=== PATIENT | female | born 1980 | race Caucasian/White ===

== ENCOUNTER → 2016-08-11 | Outpatient (CLI) | payer BC ==
--- NOTE | 2016-08-11 09:47 | CR ---
EXAMINATION: Right knee HISTORY: Pain COMPARISON: 09/25/2015 TECHNIQUE: 3 views FINDINGS/IMPRESSION: There is no acute osseous abnormality, dislocation, joint effusion, or fracture identified. Bone mineralization and joint spaces appear preserved. Early osteophyte formation is no mauri within the patellofemoral compartment.
== END ==
LOC: MW.CHORTHO 07:51
PROVIDERS: ATTEND Physician Assistant
DX: M25.561 Pain in right knee (principal); M25.761 Osteophyte, right knee
CPT/HCPCS: 73562-26-RT; 73562-RT

== ENCOUNTER → 2016-08-19 | Outpatient (CLI) | payer BC ==
--- NOTE | 2016-08-20 18:15 | MR ---
EXAM DATE: 08/19/16 PATIENT'S AGE: 35 Patient: AMISH CUEVAS Facility: [place], [place] Site . Site : 1980 Study: MRI Knee Left [id number]/15/2017 7:11:56 PM Ordering Physician: Anu Bunch Final Report: Indication: Knee pain. Comparison: None. Technique: Axial PD fat-sat, sagittal PD, T1 and PD fat sat and coronal PD and PD fat-sat sequences. Findings: Medial compartment: Meniscus: Intact. Articular cartilage: Increase signal and heterogeneous grade 2 to some areas of grade 3 irregular thinning in the central weightbearing medial condyle. Suggestion of the short delaminating nondisplaced flap (image 18 series 901). No secondary osteoarthritis finding. Medial collateral ligament: Intact. Cruciate ligaments: ACL: Intact. PCL: Intact. Lateral compartment: Meniscus: Intact. Articular cartilage: Uniform. Lateral collateral complex: Intact. Patellofemoral compartment: Mildly irregular grade 2 standing with some grade 2 to grade 3 fissuring mid median ridge of the patella. Increased signal and some subchondral edema in the top of the medial trochlea. Extensor mechanism: Quadriceps tendon and patellar tendon are intact. Borderline patella Winthrop. There is subtle medial subluxation suggested. Small focal spur along the medial inferior patellar margin (image 24 series 301). Bones and soft tissues: Upper normal physiologic fluid. Small multiloculated Still`s cyst. No bone lesion or fracture. Impression: 1. Moderately prominent chondromalacia medial condyle. 2. Mild chondromalacia medial patella. Subchondral or friction related edema in the top of the medial trochlea. Query some chronic medial tracking of the patella versus focal posttraumatic arthrosis. Dictated by Ramesh Evans MD @ Aug 20 2016 2:23PM (Electronic Signature) Report Signed by Proxy and Original Signed Document filed in the Medical Record. [facility]
--- NOTE | 2016-08-20 18:16 | MR ---
EXAM DATE: 08/19/16 PATIENT'S AGE: 35 Patient: AMISH CUEVAS Facility: [place], [place] Site . Site : 1980 Study: MRI Knee Right [id number]/15/2017 7:13:02 PM Ordering Physician: Anu Bunch Final Report: Indication: Pain after skiing injury. Comparison: None. Technique: Axial PD fat-sat, sagittal PD, T1 and PD fat sat and coronal PD and PD fat-sat sequences. Findings: Medial compartment: Meniscus: Intact. Articular cartilage: Uniform. Medial collateral ligament: Intact. Cruciate ligaments: ACL: Intact. PCL: Intact. Lateral compartment: Meniscus: Intact. Articular cartilage: Uniform. Lateral collateral complex: Intact. Patellofemoral compartment: Subtle grade 2 thinning and increased signal in the outer margin of the medial facet. Remainder the compartment is uniform. Extensor mechanism: Quadriceps tendon and patellar tendon are intact. Anatomic patellar alignment with borderline medial tilt. Shallow area of subcortical edema at the inferior medial pole of the patella with adjacent subtle edema in Hoffa`s fat. Bones and soft tissues: Physiologic fluid in the joint. Curvilinear multicystic infiltration along the insertion of the semimembranosus (series image 8 series 601). No bone lesion or fracture. Impression: 1. Peritendinous ganglion or bursitis deep to the inserting semimembranosus tendon. No high-grade tear appreciated. 2. No internal derangement of menisci or ligaments. Dictated by Ramesh Evans MD @ Aug 20 2016 2:28PM (Electronic Signature) Report Signed by Proxy and Original Signed Document filed in the Medical Record. [facility]
== END | disposition home or self-care (01) ==
LOC: MW.MRI 15:39
PROVIDERS: ATTEND Physician Assistant
DX: M25.562 Pain in left knee (principal); M94.262 Chondromalacia, left knee; M25.561 Pain in right knee
CPT/HCPCS: 73721-26-LT; 73721-26-RT; 73721-LT; 73721-RT

== ENCOUNTER → 2016-10-22 | Outpatient (CLI) | payer BC | LOC: MW.LAB 13:27 | PROVIDERS: ATTEND Nurse Practitioner Family | DX: I87.2 Venous insufficiency (chronic) (peripheral) (principal); Z83.2 Family history of diseases of the blood and blood-forming organs and certain disorders involving the immune mechanism | CPT/HCPCS: 36415; 81240; 81241; 81291; 83090; 85302; 85305; 85613; 85730 ==

== ENCOUNTER 2018-08-17 06:46 | Day surgery (SDC) | payer BC ==
[~2018-08-17 06:46] MED LIST: Acetaminophen/HYDROcodone 325-5 MG Tab PO PRN; Lactated Ringers 1,000 ML IV SCH; ceFAZolin 1 GM in Premix Bag 1 BAG IV SCH
[2018-08-17] MEDS ORDERED: Midazolam 1 MG/ML 2 ML SDV ONE (07:14)
[2018-08-17] MEDS ORDERED: Propofol 200 MG/20 ML SDV ONE (07:14)
[2018-08-17] MEDS ORDERED: fentaNYL 250 MCG/5 ML SDV ONE (07:14)
[2018-08-17] MEDS: Lactated Ringers 1,000 ML IV SCH (07:15)
[2018-08-17] MEDS ORDERED: Dexamethasone 4 MG/ML 5 ML MDV ONE (07:15)
[2018-08-17] MEDS ORDERED: Ondansetron 4 MG/2 ML SDV ONE (07:15)
[2018-08-17] MEDS ORDERED: fentaNYL 100 MCG/2 ML SDV IVPUSH PRN (07:51)
[2018-08-17] MEDS ORDERED: Lidocaine 1% with EPINEPHrine 1:100,000 10 ML MDV ONE (07:52)
[2018-08-17] MEDS ORDERED: Ketorolac 30 MG/ML SDV ONE (07:52)
--- NOTE | 2018-08-17 07:59 | PCM.PREANE ---
Preanesthetic Assessment - Anesthesia/Transfusion/Family Hx Anesthesia History: Prior Anesthesia Reaction Other Type of Anesthesia Reaction Comment: pt states she had problems with n/v after wisdom teeth extraction Transfusion History: No Prior Transfusion(s) - Review of Systems General: No Symptoms Pulmonary: No Symptoms Cardiovascular: No Symptoms Gastrointestinal: No Symptoms Neurological: No Symptoms Other: Reports: None - Physical Assessment NPO Status Date: 08/16/18 NPO Status Time: 20:00 O2 Sat by Pulse Oximetry: 99 Respiratory Rate: 18 Vital Signs: Last Vital Signs Temp 97.9 F 08/17/18 07:05 Pulse 60 08/17/18 07:05 Resp 18 08/17/18 07:05 BP 97/60 08/17/18 07:05 Pulse Ox 99 08/17/18 07:05 Height: 5 ft 9 in Weight: 62.596 kg ASA Class: 1 Mental Status: Alert & Oriented x3 Dentition: Reports: Normal Dentition ROM/Head Extension: Full Lungs: Clear to Auscultation, Normal Respiratory Effort Cardiovascular: Regular Rate, Regular Rhythm - Lab Values: Laboratory Last Values Urine HCG, Qual NEGATIVE (NEGATIVE) 08/17/18 07:02 - Allergies Allergies/Adverse Reactions: Allergies Allergy/AdvReac Type Severity Reaction Status Date / Time No Known Allergies Allergy Verified 08/10/18 14:54 - Blood Blood Available: No - Anesthesia Plan Pre-Op Medication Ordered: None - Acknowledgements Anesthesia Type Planned: General Anesthesia Pt an Appropriate Candidate for the Planned Anesthesia: Yes Alternatives and Risks of Anesthesia Discussed w Pt/Guardian: Yes Pt/Guardian Understands and Agrees with Anesthesia Plan: Yes Additional Comments: PMH: none PLAN: ga-lma PreAnesthesia Questionnaire HEENT History: Reports: None Cardiovascular History: Reports: None Respiratory History: Reports: None Gastrointestinal History: Reports: Other (See Below) Other Gastrointestinal History: has Lincoln Disease- causes chronically high Bilirubin Genitourinary History: Reports: None 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: Musculoskeletal History: Reports: None Neurological History: Reports: None Psychiatric History: Reports: Other (See Below) Other Psychiatric History: hx of motion sickness Endocrine/Metabolic History: Reports: None Hematologic History: Reports: None Immunologic History: Reports: None Oncologic (Cancer) History: Reports: None Dermatologic History: Reports: None - Past Surgical History Head Surgeries/Procedures: Reports: None HEENT Surgical History: Reports: None Cardiovascular Surgical History: Reports: None Respiratory Surgical History: Reports: None GI Surgical History: Reports: None Female Surgical History: Reports: Breast Implant Endocrine Surgical History: Reports: None Neurological Surgical History: Reports: None Musculoskeletal Surgical History: Reports: None Oncologic Surgical History: Reports: None - SUBSTANCE USE Smoking Status *Q: Never Smoker Recreational Drug Use History: No - HOME MEDS Home Medications: Home Meds . [No Known Home Meds] 08/10/18 [History] - CURRENT (IN HOUSE) MEDS Current Meds: Current Medications Hydrocodone Bitart/Acetaminophen (Daykin 325-5 Mg) 1 - 2 tab PO Q4H PRN PRN Reason: Pain Fentanyl (Sublimaze) 50 mcg IVPUSH Q5M PRN PRN Reason: Pain (severe 7-10) Stop: 08/17/18 11:00 Cefazolin Sodium/Dextrose 1 gm (/ Premix) 50 mls @ 100 mls/hr IV ONCALL RYAN Lactated Ringer's (Ringers, Lactated) 1,000 mls @ 100 mls/hr IV ASDIRECTED RYAN Last Admin: 08/17/18 07:15 Dose: 100 mls/hr Discontinued Medications Hydrocodone Bitart/Acetaminophen (Daykin 325-5 Mg) 1 - 2 tab PO Q4H PRN PRN Reason: Pain Dexamethasone (Dexamethasone) Confirm Administered Dose 20 mg .ROUTE .STK-MED ONE Stop: 08/17/18 07:16 Fentanyl (Sublimaze) Confirm Administered Dose 250 mcg .ROUTE .STK-MED ONE Stop: 08/17/18 07:15 Cefazolin Sodium/Dextrose 1 gm (/ Premix) 50 mls @ 100 mls/hr IV ONCALL RYAN Lactated Ringer's (Ringers, Lactated) 1,000 mls @ 100 mls/hr IV ASDIRECTED RYAN Lidocaine HCl (Xylocaine-Mpf 1%) Confirm Administered Dose 5 mls @ as directed .ROUTE .STK-MED ONE Stop: 08/17/18 07:16 Cefazolin Sodium/Dextrose (Ancef) Confirm Administered Dose 50 mls @ as directed .ROUTE .STK-MED ONE Stop: 08/17/18 07:24 Lidocaine HCl (Xylocaine-Mpf 1%) Confirm Administered Dose 10 mls @ as directed .ROUTE .STK-MED ONE Stop: 08/17/18 07:54 Acetaminophen (Ofirmev) Confirm Administered Dose 100 mls @ as directed IV .STK- MED ONE Stop: 08/17/18 07:54 Ketorolac Tromethamine (Toradol) Confirm Administered Dose 30 mg .ROUTE .STK- MED ONE Stop: 08/17/18 07:53 Lidocaine/Epinephrine (Xylocaine 1% With Epinephrine 1:100,000) Confirm Administered Dose 10 ml .ROUTE .STK-MED ONE Stop: 08/17/18 07:53 Midazolam HCl (Versed 1 Mg/Ml) Confirm Administered Dose 2 mg .ROUTE .STK-MED ONE Stop: 08/17/18 07:15 Ondansetron HCl (Zofran) Confirm Administered Dose 4 mg .ROUTE .STK-MED ONE Stop: 08/17/18 07:16 Propofol (Diprivan 20 Ml) Confirm Administered Dose 200 mg .ROUTE .STK-MED ONE Stop: 08/17/18 07:15
[2018-08-17] MEDS ORDERED: ceFAZolin 1 GM in Premix Bag 1 BAG IV SCH (08:00)
[2018-08-17] MEDS ORDERED: ePHEDrine 50 MG/ML SDV ONE (08:41)
--- NOTE | 2018-08-17 09:12 | PCM.OPNOTE ---
- General Post-Op/Procedure Note Date of Surgery/Procedure: 08/17/18 Operative Procedure(s): L knee arthroscopy with chondroplasty of medial femoral condyle and PFJ Post-Op Diagnosis: DJD left knee Anesthesia Technique: General LMA Primary Surgeon: Vida Fregoso Operations Manager Station: Alivia Brennan in mLs: 10 Condition: Good Free Text/Narrative:: tt=19 min #[id number]
--- NOTE | 2018-08-17 09:33 | PCM.POSTAN ---
POST ANESTHESIA ASSESSMENT - MENTAL STATUS Mental Status: Alert, Oriented - RESPIRATORY Respiratory Status: Respiratory Rate WNL, Airway Patent, O2 Saturation Stable - CARDIOVASCULAR CV Status: Pulse Rate WNL, Blood Pressure Stable - GASTROINTESTINAL GI Status: No Symptoms - POST OP HYDRATION Hydration Status: Adequate & Stable
--- NOTE | 2018-08-17 10:04 | OR ---
SURGEON: Vida Fregoso MD DATE OF PROCEDURE: 08/17/2018 PREOPERATIVE DIAGNOSIS: Left knee degenerative joint disease. POSTOPERATIVE DIAGNOSIS: Left knee degenerative joint disease. PROCEDURE: Left knee arthroscopy with chondroplasty of the medial femoral condyle and patellofemoral joint. GEOLOGIST: Alivia Brennan PA-C ANESTHESIA: General. ESTIMATED BLOOD LOSS: 5 mL. TOURNIQUET TIME: 19 minutes. COMPLICATIONS: None. DEEP VENOUS THROMBOSIS PROPHYLAXIS: Not indicated. IMPLANTS USED: None. BRIEF HISTORY: Liza is a 37-year-old female who has had complaint of progressive left knee pain. She has tried injections as well as therapy, which has not given her lasting relief. Due to her lack of response to conservative treatment, I did recommend surgical treatment. Risks and goals of procedure were discussed with the patient and were documented preoperatively. She agreed to proceed. DESCRIPTION OF PROCEDURE: The patient was properly identified and brought to the operating room. She was transferred from the OR cart and placed on the operating table in supine position. General anesthesia was administered. After adequate anesthesia was obtained, a well-padded tourniquet was applied to the left lower extremity. The left lower extremity was then prepped in standard fashion using ChloraPrep solution. It was then sterilely draped. A time-out was performed to ensure correct site and procedure. Preoperative antibiotics were given. The surgical site had been marked preoperatively. An Esmarch was used to exsanguinate the left lower extremity, and the tourniquet was inflated to 250 mmHg. A lateral portal arthrotomy was established. Blunt trocar and cannula were introduced into the suprapatellar pouch. Camera, inflow, and outflow were assembled. There was no sign of synovitis. The patellofemoral joint was then visualized. Grade 3 chondromalacia was noted along the patella along with grade 4 chondromalacia along the trochlea. There was some evidence of fat pad impingement. The patella appeared to track centrally. I then extended down the lateral and medial gutter. No loose bodies were identified. I then entered the medial compartment. A medial portal arthrotomy was established. A blunt probe was inserted. The meniscus was extensively probed and found to be intact. She did have a large area of chondromalacia over the weightbearing surface of the medial femoral condyle. This was probed, and loose cartilage was noted. A shaver was used to perform a chondroplasty. The area of chondromalacia measured approximately 10 mm x 10 mm. At the completion of the chondroplasty, grade 3 chondromalacia was noted. Grade 2 chondromalacia was noted diffusely along the medial tibial plateau. I then entered the notch. Both the ACL and PCL were visualized and probed and found to be intact. I then entered the lateral compartment. Grade 1 to grade 2 chondromalacia was noted diffusely over the lateral tibial plateau. The lateral femoral condyle showed no significant degenerative findings. I then re-entered the patellofemoral joint. Chondroplasty of the patella as well as the trochlear groove was performed. She did have large loose full- thickness flaps of cartilage loss along the trochlear groove. This was removed with the shaver. At completion, the trochlea showed grade 4 chondromalacia with an area measuring approximately 20 mm in medial to lateral distance and 20 mm in superior to inferior measurement. Instruments were then removed from the knee. The portal sites were closed with 3-0 nylon. 1% Lidocaine was injected along the portal tracts. Xeroform gauze was placed over the wound, and a bulky dressing was applied. Tourniquet was then deflated. She was awakened from her anesthetic and transferred back to the operating room cart. She was brought to recovery room in stable condition. All needle and sponge counts were correct. LUIS / LAKEISHA /[id number]
[2018-08-17] MEDS: Acetaminophen/HYDROcodone 325-5 MG Tab PO PRN (10:05)
--- NOTE | 2018-08-17 10:27 | PCM48HPAN ---
Post Anesthesia Note - EVALUATION WITHIN 48HRS OF ANESTHETIC Vital Signs in Normal Range: Yes Patient Participated in Evaluation: Yes Respiratory Function Stable: Yes Airway Patent: Yes Cardiovascular Function Stable: Yes Hydration Status Stable: Yes Pain Control Satisfactory: Yes Nausea and Vomiting Control Satisfactory: Yes Mental Status Recovered: Yes Resp Rate: 16
[2018-08-17 10:31] VITALS: BP 93/52
== END 2018-08-17 10:52 | disposition home or self-care (01) ==
LOC: MW.SDS 06:46
PROVIDERS: ATTEND Orthopaedic Surgery
DX: M17.12 Unilateral primary osteoarthritis, left knee (principal); M22.42 Chondromalacia patellae, left knee; M25.862 Other specified joint disorders, left knee; E80.4 Gilbert syndrome
CPT/HCPCS: 29877; 81025; A9270; J0131; J0690; J1100; J1885; J2001; J2250; J2405; J2704; J3010; J7120